=== PATIENT | female | born 1995 | race Caucasian/White ===

== ENCOUNTER 2016-12-30 17:02 | Emergency (ER) | payer MEDICAID ==
[2016-12-30 17:08] VITALS: RESP 16
[2016-12-30] MEDS ORDERED: NS 1,000 ML IV ONE (17:20)
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
[2016-12-30 17:34] LABS: COLOR YELLOW; LEUKOCYTE ESTERASE,URINE NEGATIVE (NEGATIVE); NITRITE,URINE NEGATIVE (NEGATIVE)
[2016-12-30 17:54] LABS: % IMMATURE GRANULYOCYTES 0.5 % (0.0-1.1); ABSOLUTE IMMATURE GRANULOCYTES 0.06 10^3/uL (0.00-0.10); ADD DIFF? NO; ADD MORPH? NO; ADD SCAN? NO; ATYPICAL LYMPHOCYTE FLAG 20 (0-99); FRAGMENT RBC FLAG 0 (0-99); HEMATOCRIT 45.4 % (38.0-47.0); HEMOGLOBIN 15.5 g/dL (12.6-16.3); LEFT SHIFT FLG 0 (0-99); LIPEMIA HEMOLYSIS FLAG 90 (0-99); MEAN CELL HEMOGLOBIN 32.8 pg (27.9-34.1); MEAN CELL HEMOGLOBIN CONCENTR. 34.1 g/dL (32.4-36.7); MEAN CELL VOLUME 96.2 fL (81.5-99.8); MEAN PLATELET VOLUME 9.9 fL (8.7-11.7); PLATELET CLUMPS FLAG 10 (0-99); PLATELET COUNT 291 10^3/uL (150-400); RED BLOOD CELL COUNT 4.72 10^6/uL (4.18-5.33); RED CELL DISTRIBUTION WIDTH 13.2 % (11.5-15.2)
[2016-12-30 18:01] LABS: INR 1.02 (0.83-1.16); PROTIME(PATIENT) 13.3 SEC (12.0-15.0)
[2016-12-30 18:03] LABS: ALANINE AMINOTRANSFERASE 23 IU/L (9-52); ALBUMIN 4.4 g/dL (3.5-5.0); ALKALINE PHOSPHATASE 61 IU/L (38-126); ANION GAP 12 mEq/L (8-16); ASPARTATE AMINOTRANSFERASE 19 IU/L (14-46); BILIRUBIN,TOTAL 0.7 mg/dL (0.1-1.4); BILIRUBIN-CONJUGATED 0.4 mg/dL (0.0-0.5); BILIRUBIN-UNCONJUGATED 0.3 mg/dL (0.0-1.1); CALCIUM 10.3 mg/dL (8.5-10.4); CARBON DIOXIDE 25 mEq/l (22-31); CHLORIDE 101 mEq/L (97-110); CREATININE 0.7 mg/dL (0.6-1.0); GLOMERULAR FILTRATION RATE > 60; GLUCOSE 66 mg/dL (70-100); POTASSIUM 3.9 mEq/L (3.5-5.2); SODIUM 138 mEq/L (134-144); TOTAL PROTEIN 7.8 g/dL (6.3-8.2)
[2016-12-30 19:26] VITALS: BP 124/78; PULSE 69; TEMP 98.6; O2SAT 100
== END 2016-12-30 19:26 | disposition home or self-care (01) ==
DX: O26.891 Other specified pregnancy related conditions, first trimester (principal); F17.200 Nicotine dependence, unspecified, uncomplicated; R10.32 Left lower quadrant pain; Z3A.01 Less than 8 weeks gestation of pregnancy

== ENCOUNTER → 2017-01-17 | Outpatient (CLI) | payer MEDICAID | LOC: BRMIMAGING 14:27 | DX: Z34.91 Encounter for supervision of normal pregnancy, unspecified, first trimester (principal); Z3A.08 8 weeks gestation of pregnancy ==

== ENCOUNTER 2017-02-12 14:05 | Emergency (ER) | payer MEDICAID ==
[2017-02-12 14:10] VITALS: RESP 16; TEMP 98.2
--- NOTE | 2017-02-12 14:41 | EDPHY ---
H & P Time Seen by Provider: 02/12/17 14:15 HPI/ROS: CHIEF COMPLAINT: Vaginal bleeding, HISTORY OF PRESENT ILLNESS: 21-year-old female presents to the emergency department with vaginal bleeding. The patient is 11 weeks and 5 days . Last menstrual period was November 18, 2016. The patient woke up this morning and noted some bright red vaginal bleeding. It is sent slow down. This was accompanied by lower abdominal cramping and pain. No back pain. No urinary symptoms. No chest pain or difficulty breathing. No back pain. REVIEW OF SYSTEMS: Constitutional: No fever, no chills. Eyes: No double or blurry vision. ENT: No sore throat. Respiratory: No cough, no shortness of breath. Cardiac: No chest pain. Gastrointestinal: Abdominal pain as above. No vomiting or diarrhea. Genitourinary: No dysuria. Musculoskeletal: No neck or back pain. Skin: No rashes. Neurological: No headache. Past Medical/Surgical History: 1 para 0 AB 0 Social History: Lives in [place] Smoking Status: Current every day smoker Physical Exam: General Appearance: Alert, no distress. 109/59, 36.8, 97% on room air. Eyes: Pupils equal and round. Extraocular motions are all intact. ENT: Mouth: Mucous membranes moist. Respiratory: No wheezing, rhonchi, or rales, lungs are clear to auscultation. Cardiovascular: Regular rate and rhythm. Gastrointestinal: Abdomen is soft and nontender, no masses, no rebound or guarding, bowel sounds normal. No CVA tenderness bilaterally. Neurological: Alert and oriented x 3, cranial nerves II through XII grossly intact Skin: Warm and dry, no rashes. Musculoskeletal: Nontender to palpate along the cervical, thoracic or lumbar spine. Neck is supple. Extremities: Full range of motion and no peripheral edema. Psychiatric: Patient is oriented X 3, there is no agitation. Constitutional: Initial Vital Signs Temperature (C) 36.8 C 02/12/17 14:07 Heart Rate 79 02/12/17 14:07 Respiratory Rate 16 02/12/17 14:07 Blood Pressure 109/59 L 02/12/17 14:07 O2 Sat (%) 97 02/12/17 14:07 O2 Delivery Mode Room Air Allergies/Adverse Reactions: No Known Allergies Allergy (Unverified 02/11/13 14:34) Home Medications: Medication Instructions Recorded NK [No Known Home Meds] 02/12/17 Medical Decision Making - Diagnostics Imaging: Imaging Impressions Obstetrics Ultrasound 02/12/17 14:37 Impression: 1. Single living intrauterine gestation with size concordant with dates. 2. Small hypoechoic area at the superior posterior aspect of the placenta, suggesting subchronic hemorrhage, similar to the prior study.' 3. Posterior low lying placenta. Findings discussed with Jonna Tonie Uziel 02/12/2017 at 16:20. ED Course/Re-evaluation: 21-year-old female presents to the emergency department with vaginal bleeding. Patient states her vaginal bleeding has greatly improved. She is barely spotting now. Pelvic exam was deferred. She is approximately 12 weeks . She is O positive. Quantitative HCG is over 30,000. Pelvic ultrasound reveals intrauterine with a strong heart rate of 156. There is a small subchorionic hemorrhage that was present on a previous ultrasound 1 month prior. Patient felt comfortable being discharged home. I do not think any other intervention is necessary. She is comfortable being discharged. She will keep scheduled follow-up with OBGYN. She was also encouraged to stop smoking and continue her vitamins. Differential Diagnosis: Including but not limited to intrauterine , ectopic , dysfunctional uterine bleeding - Data Points Laboratory Results: Laboratory Results 02/12/17 14:40 02/12/17 14:40 02/12/17 02/12/17 02/12/17 14:40 14:40 14:40 WBC 12.17 10^3/uL H 10^3/uL (3.80-9.50) RBC 4.05 10^6/uL L 10^6/uL (4.18-5.33) Hgb 13.3 g/dL g/dL (12.6-16.3) Hct 37.6 % L % (38.0-47.0) MCV 92.8 fL fL (81.5-99.8) MCH 32.8 pg pg (27.9-34.1) MCHC 35.4 g/dL g/dL (32.4-36.7) RDW 12.2 % % (11.5-15.2) Plt Count 248 10^3/uL 10^3/uL (150-400) MPV 10.1 fL fL (8.7-11.7) Neut % (Auto) 66.7 % % (39.3-74.2) Lymph % (Auto) 25.5 % % (15.0-45.0) Coles % (Auto) 6.3 % % (4.5-13.0) Eos % (Auto) 0.6 % % (0.6-7.6) Baso % (Auto) 0.4 % % (0.3-1.7) Nucleat RBC Rel Count 0.0 % % (0.0-0.2) Absolute Neuts (auto) 8.12 10^3/uL H 10^3/uL (1.70-6.50) Absolute Lymphs (auto) 3.10 10^3/uL H 10^3/uL (1.00-3.00) Absolute Monos (auto) 0.77 10^3/uL 10^3/uL (0.30-0.80) Absolute Eos (auto) 0.07 10^3/uL 10^3/uL (0.03-0.40) Absolute Basos (auto) 0.05 10^3/uL 10^3/uL (0.02-0.10) Absolute Nucleated RBC 0.00 10^3/uL 10^3/uL (0-0.01) Immature Gran % 0.5 % % (0.0-1.1) Immature Gran # 0.06 10^3/uL 10^3/uL (0.00-0.10) Sodium 134 mEq/L mEq/L (134-144) Potassium 4.0 mEq/L mEq/L (3.5-5.2) Chloride 104 mEq/L mEq/L (97-110) Carbon Dioxide 24 mEq/l mEq/l (22-31) Anion Gap 6 mEq/L L mEq/L (8-16) BUN 11 mg/dL mg/dL (7-23) Creatinine 0.6 mg/dL mg/dL (0.6-1.0) Estimated GFR > 60 Glucose 70 mg/dL mg/dL (70-100) Calcium 9.7 mg/dL mg/dL (8.5-10.4) Beta HCG, Quant 95590.00 mIU/mL H mIU/mL (0-4.83) Patient ABO/Rh O POSITIVE Departure - Departure Disposition: Home, Routine, Self-Care Clinical Impression: Intrauterine , Vaginal bleeding Condition: Good Instructions: First Trimester Vaginal Bleed (ED), First Trimester (ED ) Additional Instructions: Stop smoking. Continue vitamins. Keep scheduled follow-up appointment with OBGYN. Referrals: Rich Narvaez MD [Primary Care Provider] - As per Instructions
[2017-02-12 14:56] LABS: % IMMATURE GRANULYOCYTES 0.5 % (0.0-1.1); ABSOLUTE IMMATURE GRANULOCYTES 0.06 10^3/uL (0.00-0.10); ADD DIFF? NO; ADD MORPH? NO; ADD SCAN? NO; ATYPICAL LYMPHOCYTE FLAG 10 (0-99); FRAGMENT RBC FLAG 0 (0-99); HEMATOCRIT 37.6 % (38.0-47.0); HEMOGLOBIN 13.3 g/dL (12.6-16.3); LEFT SHIFT FLG 0 (0-99); LIPEMIA HEMOLYSIS FLAG 90 (0-99); MEAN CELL HEMOGLOBIN 32.8 pg (27.9-34.1); MEAN CELL HEMOGLOBIN CONCENTR. 35.4 g/dL (32.4-36.7); MEAN CELL VOLUME 92.8 fL (81.5-99.8); MEAN PLATELET VOLUME 10.1 fL (8.7-11.7); PLATELET CLUMPS FLAG 20 (0-99); PLATELET COUNT 248 10^3/uL (150-400); RED BLOOD CELL COUNT 4.05 10^6/uL (4.18-5.33); RED CELL DISTRIBUTION WIDTH 12.2 % (11.5-15.2)
[2017-02-12 15:04] LABS: ANION GAP 6 mEq/L (8-16); CALCIUM 9.7 mg/dL (8.5-10.4); CARBON DIOXIDE 24 mEq/l (22-31); CHLORIDE 104 mEq/L (97-110); CREATININE 0.6 mg/dL (0.6-1.0); GLOMERULAR FILTRATION RATE > 60; GLUCOSE 70 mg/dL (70-100); SODIUM 134 mEq/L (134-144)
[2017-02-12 16:35] VITALS: BP 121/73; PULSE 68; O2SAT 95
== END 2017-02-12 17:04 | disposition home or self-care (01) ==
DX: O20.8 Other hemorrhage in early pregnancy (principal); F17.200 Nicotine dependence, unspecified, uncomplicated; Z3A.12 12 weeks gestation of pregnancy

== ENCOUNTER → 2017-03-01 | Outpatient (CLI) | payer MEDICAID | LOC: BMCIMAGING 07:50 | PROVIDERS: ATTEND Family Medicine | DX: O22.21 Superficial thrombophlebitis in pregnancy, first trimester (principal); I82.90 Acute embolism and thrombosis of unspecified vein; Z3A.11 11 weeks gestation of pregnancy ==

== ENCOUNTER 2017-05-04 15:32 | Observation (INO) | payer MEDICAID ==
--- NOTE | 2017-05-04 19:26 | GHP ---
[f rep st] HISTORY AND PHYSICAL DATE OF ADMISSION: 05/04/2017 ADMIT DIAGNOSES: 1. Intrauterine at 23 and 6/7 weeks gestation, status post fall last night. 2. Constipation. HISTORY OF PRESENT ILLNESS: The patient is a 21-year-old, 1, para 0, who is 23 and 6/7 week s gestation. She is getting her care at [facility]. She states that she tripped and fell last night and landed on her chapman and her wrist. She did not hit the floor. Her b madi did not hit the floor. There was no abdominal trauma. She has felt good movement since that time. She states she did call the office to let them know this morning, and they recommended s he come to the hospital for evaluation. The patient had normal heart tones appropriate for ge stational age on the monitor. She is stating good movement. She did not hurt her belly, so t here is no abdominal pain, and she is not having any contractions. The patient also states that she has occasional episodes of epigastric discomfort. She has not tried taking Tums because she did no t know she could. She also has constipation. She tried taking prune juice yesterday but she has no t had a bowel movement since then. Her last bowel movement was 2 days ago. Denies any vaginal blee ding or loss of fluid. She denies any headache or changes in vision. The patient does have a [facility] appointment on Tuesday with the maternal medicine doctors and is following up [facility] Tuesday for an appointment. Her blood type is Rh positive. Her Kleihauer Betke is pending and will ensure that it is negative before she is discharged to home. ASSESSMENT AND PLAN: 1. A 21-year-old, 1, para 0, at 23 and 6/7 weeks gestation who came in status post fall las t night with no abdominal trauma. We reviewed kick counts and precautions. Her abdomen is gravid, nontender. The patient will follow up with her providers on Tuesday or sooner if anything c hanges. She is following up with Maternal Medicine on Tuesday. 2. Heartburn. Patient will try Tums. 3. Constipation. Patient will start drinking larger amounts of water and Colace stool softeners as needed and MiraLAX. Patient will follow up with her providers in the office next week. /[id number]/MODL
== END 2017-05-04 19:25 | disposition home or self-care (01) ==
LOC: FLD 15:32
PROVIDERS: ADMIT Obstetrics & Gynecology; ATTEND Obstetrics & Gynecology
DX: O9A.212 Injury, poisoning and certain other consequences of external causes complicating pregnancy, second trimester (principal); W01.10XA Fall on same level from slipping, tripping and stumbling with subsequent striking against unspecified object, initial encounter; Z3A.23 23 weeks gestation of pregnancy; K59.00 Constipation, unspecified; R12 Heartburn
CPT/HCPCS: G0378 ×2

== ENCOUNTER → 2017-05-09 | Outpatient (CLI) | payer MEDICAID | LOC: FIMAGING 13:23 | PROVIDERS: ATTEND Family Medicine | DX: O36.5920 Maternal care for other known or suspected poor fetal growth, second trimester, not applicable or unspecified (principal); O99.332 Smoking (tobacco) complicating pregnancy, second trimester; O99.322 Drug use complicating pregnancy, second trimester; O22.22 Superficial thrombophlebitis in pregnancy, second trimester; O26.12 Low weight gain in pregnancy, second trimester; Z3A.24 24 weeks gestation of pregnancy ==

== ENCOUNTER → 2017-05-23 | Outpatient (CLI) | payer MEDICAID | LOC: FIMAGING 08:41 | PROVIDERS: ATTEND Family Medicine | DX: O36.5920 Maternal care for other known or suspected poor fetal growth, second trimester, not applicable or unspecified (principal); I80.8 Phlebitis and thrombophlebitis of other sites; Z3A.23 23 weeks gestation of pregnancy; O36.8920 Maternal care for other specified fetal problems, second trimester, not applicable or unspecified; O99.322 Drug use complicating pregnancy, second trimester; F12.90 Cannabis use, unspecified, uncomplicated ==

== ENCOUNTER → 2017-06-06 | Outpatient (CLI) | payer MEDICAID | LOC: FIMAGING 09:07 | PROVIDERS: ATTEND Family Medicine | DX: O36.5931 Maternal care for other known or suspected poor fetal growth, third trimester, fetus 1 (principal); O99.323 Drug use complicating pregnancy, third trimester; Z3A.28 28 weeks gestation of pregnancy ==

== ENCOUNTER → 2017-06-20 | Outpatient (CLI) | payer MEDICAID | LOC: FIMAGING 08:57 | PROVIDERS: ATTEND Family Medicine | DX: O36.5930 Maternal care for other known or suspected poor fetal growth, third trimester, not applicable or unspecified (principal); O36.8930 Maternal care for other specified fetal problems, third trimester, not applicable or unspecified; F12.90 Cannabis use, unspecified, uncomplicated; Z3A.30 30 weeks gestation of pregnancy ==

== ENCOUNTER → 2017-07-05 | Outpatient (CLI) | payer MEDICAID | LOC: FIMAGING 08:02 | PROVIDERS: ATTEND Family Medicine | DX: O36.5931 Maternal care for other known or suspected poor fetal growth, third trimester, fetus 1 (principal); Z3A.32 32 weeks gestation of pregnancy ==

== ENCOUNTER → 2017-07-18 | Outpatient (CLI) | payer MEDICAID | LOC: FIMAGING 13:17 | PROVIDERS: ATTEND Family Medicine | DX: O36.5931 Maternal care for other known or suspected poor fetal growth, third trimester, fetus 1 (principal); O36.8931 Maternal care for other specified fetal problems, third trimester, fetus 1; Z3A.32 32 weeks gestation of pregnancy ==

== ENCOUNTER → 2017-07-26 | Outpatient (CLI) | payer MEDICAID | LOC: FIMAGING 07:24 | PROVIDERS: ATTEND Family Medicine | DX: O36.5930 Maternal care for other known or suspected poor fetal growth, third trimester, not applicable or unspecified (principal); O26.13 Low weight gain in pregnancy, third trimester; O35.1XX0 Maternal care for (suspected) chromosomal abnormality in fetus, not applicable or unspecified; O99.333 Smoking (tobacco) complicating pregnancy, third trimester; I80.8 Phlebitis and thrombophlebitis of other sites; F17.200 Nicotine dependence, unspecified, uncomplicated; F12.90 Cannabis use, unspecified, uncomplicated; Z3A.35 35 weeks gestation of pregnancy ==

== ENCOUNTER 2017-11-23 15:47 | Emergency (ER) | payer MEDICAID ==
[2017-11-23 15:53] VITALS: RESP 16; TEMP 98.6
[2017-11-23] MEDS ORDERED: NS 1,000 ML IV ONE ×2 (16:15→17:20)
--- NOTE | 2017-11-23 16:19 | EDPHY ---
H & P Smoking Status: Former smoker Time Seen by Provider: 11/23/17 16:00 HPI/ROS: CHIEF COMPLAINT: Back pain, nausea, urinary frequency HISTORY OF PRESENT ILLNESS: 22-year-old female presents to the emergency department by private vehicle feeling nauseous and complaining of ongoing back pain. She was seen by her primary care provider at [facility] yesterday and diagnosed with pyelonephritis. She was started on Levaquin 750 mg. She took 2 doses of this so far. She feels that the urinary frequency is better although she still feels nauseous and is unable to eat or drink anything. She is 3 months . Her last menstrual period began 6 days ago. She denies . Denies abdominal pain. Has more right-sided flank pain but also is having some left low back pain as well. Yesterday she was having pain in her right buttock and right leg, however this has since resolved. Was vomiting yesterday. No diarrhea. Fever of 100 degrees. REVIEW OF SYSTEMS: Constitutional: Fever, chills Eyes: No double or blurry vision. ENT: No sore throat. Respiratory: No cough, no shortness of breath. Cardiac: No chest pain. Gastrointestinal: No abdominal pain, vomiting or diarrhea. Genitourinary: No dysuria. Musculoskeletal: Back pain as above. No neck pain. Skin: No rashes. Neurological: No headache. (Jonna Triplett) Past Medical/Surgical History: Chronic back pain, diagnosed with pyelonephritis yesterday taking Levaquin 750 mg x2 doses (Jonna Triplett) Social History: Single and lives in [place] (Jonna Triplett M) Physical Exam: General Appearance: Alert, no distress. Temperature 37.0degrees, 123/94, heart rate 98, 95% on room air. Nontoxic appearing. Mother at bedside. Eyes: Pupils equal and round. Extraocular motions are all intact. ENT: Mouth: Mucous membranes moist. Respiratory: No wheezing, rhonchi, or rales, lungs are clear to auscultation. Cardiovascular: Regular rate and rhythm. Gastrointestinal: Abdomen is soft and nontender, no masses, no rebound or guarding, bowel sounds normal. Bilateral CVA tenderness. Neurological: Alert and oriented x 3, cranial nerves II through XII grossly intact Skin: Warm and dry, no rashes. Musculoskeletal: Nontender to palpate along the cervical, thoracic or lumbar spine. Neck is supple. Extremities: Full range of motion and no peripheral edema. Pain with straight leg raise although she is able to do this fully. Normal gait. Psychiatric: Patient is oriented X 3, there is no agitation. (Jonna Triplett) Constitutional: Initial Vital Signs Temperature (C) 37 C 11/23/17 15:51 Heart Rate 98 11/23/17 15:51 Respiratory Rate 16 11/23/17 15:51 Blood Pressure 123/94 H 11/23/17 15:51 O2 Sat (%) 95 11/23/17 15:51 O2 Delivery Mode Room Air Allergies/Adverse Reactions: No Known Allergies Allergy (Verified 11/23/17 15:50) Home Medications: Medication Instructions Recorded Levofloxacin 11/23/17 Medical Decision Making ED Course/Re-evaluation: 22-year-old female presents to the emergency department with ongoing back pain and feeling nauseous. The patient is requesting IV fluids. Patient does not have a fever here. She is nontoxic appearing. She is not currently vomiting. An IV is established and laboratory studies are drawn. Patient had diagnosis of pyelonephritis yesterday and was started on Levaquin. She states her urine culture will be back tomorrow. She does feel that the urinary frequency is better. She has not vomited today. Patient was given IV normal saline as well as IV Toradol. Laboratory studies reveal elevated white blood cell count of almost 21,000 with left shift. This was discussed with Dr. Corinna Yoon, secondary supervising physician, who did not directly evaluate the patient but agrees with treatment and plan. The patient is feeling much better. She is requesting to be discharged home. I encouraged her to continue her antibiotic as prescribed and will call her primary care provider tomorrow about her urine culture. She was instructed to return to the emergency department if she developed pain in her chest, difficulty breathing, vomiting, fever or if she feels worse in any way. I did discuss the possibility of influenza. Her rapid. Influenza screen was negative. The patient does not have a cough. Her lungs are clear to auscultation. Her O2 saturation is normal on room air. I doubt pneumonia. The patient is having pain in her lower back which is especially worse with movement. (Jonna Triplett) The patient was evaluated and managed by the physician hospital clinic assistant. I have reviewed this chart and I agree with the findings and plan of care as documented , as indicated by my signature. I am the secondary supervising physician. I reviewed the laboratory results. She has an elevated white blood cell count at 21,000 with left shift. Admittedly, this is high. However, she is clinically well-appearing and she feels comfortable returning home. She received IV hydration in the emergency department. She is taking antibiotics for pyelonephritis that was diagnosed yesterday. She has been able to tolerate oral medications and is not currently experiencing nausea or vomiting. Danger signs have been reviewed with her by the physician hospital clinic assistant. She will check on her urine culture will be checked when it is available. Based upon my conversation with Jonna Triplett, I am confident that this patient can safely return home at this point and that she will return if things take a turn for the worse. (Corinna Yoon) Differential Diagnosis: Including but not limited to pyelonephritis, urinary tract infection, kidney stone, musculoskeletal back pain, dehydration, electrolyte abnormality, renal failure (Jonna Triplett) - Data Points Laboratory Results: Laboratory Results 11/23/17 16:25 11/23/17 16:25 Medications Given: Discontinued Medications Sodium Chloride (Ns) 1,000 mls @ 0 mls/hr IV ONCE ONE PRN Reason: Wide Open Stop: 11/23/17 16:16 Last Admin: 11/23/17 16:33 Dose: 1,000 mls Sodium Chloride (Ns) 1,000 mls @ 0 mls/hr IV ONCE ONE PRN Reason: Wide Open Stop: 11/23/17 17:21 Last Admin: 11/23/17 17:24 Dose: 1,000 mls Ketorolac Tromethamine (Toradol) 30 mg IVP EDNOW ONE Stop: 11/23/17 17:21 Last Admin: 11/23/17 17:23 Dose: 30 mg Departure - Departure Disposition: Home, Routine, Self-Care Clinical Impression: Back pain Qualifiers: Back pain location: low back pain Chronicity: acute Back pain laterality: unspecified Sciatica presence: without sciatica Qualified Code(s): M54.5 - Low back pain Condition: Good Instructions: Kidney Infection (ED), Acute Low Back Pain (ED) Additional Instructions: Continue antibiotics as prescribed. Follow up with her primary care provider this week to recheck. Return to the emergency department if you developed vomiting, fever, or if you feel worse in any way. Referrals: Rich Narvaez MD [Primary Care Provider] - 1-2 days without fail
[2017-11-23 16:33] LABS: PLATELET COUNT 244 10^3/uL (150-400)
[2017-11-23] MEDS ORDERED: KETOROLAC 30 MG/1 ML SDV IVP ONE (17:20)
[2017-11-23 19:16] VITALS: BP 122/74; PULSE 80; O2SAT 96
== END 2017-11-23 19:16 | disposition home or self-care (01) ==
DX: M54.5 Low back pain (principal); R11.2 Nausea with vomiting, unspecified; Z87.891 Personal history of nicotine dependence
CPT/HCPCS: J1885

== ENCOUNTER 2019-04-07 10:59 | Emergency (ER) | payer MEDICAID | END 2019-04-07 15:11 | disposition home or self-care (01) ==

== ENCOUNTER 2019-04-17 14:47 | Emergency (ER) | payer MEDICAID | END 2019-04-17 16:01 | disposition home or self-care (01) ==